=== PATIENT | female | born 1940 | race Caucasian/White ===

== ENCOUNTER 2018-01-03 18:56 | Inpatient (IN) | payer OTHER ==
[~2018-01-03] VITALS: Ht 162.6 cm; Wt 67.1 kg
[~2018-01-03 18:56] MED LIST: BP; CITALOPRAM; CITALOPRAM HBR40 MG PO; FENOFIBRATE145 MG PO; HYDRALAZINE HCL25 MG PO; HYDROCODON-ACE1 EA12 PO; LOSARTAN POTAS100 MG PO; MECLIZINE HCL12.5 MG PO; SIMVASTATIN; SIMVASTATIN40 MG PO; VALIUM2 MG PO
[2018-01-03] MEDS ORDERED: MORPHINE SULFATE INJ 4 MG/ML INJ IM ONE (20:30)
--- NOTE | 2018-01-03 21:11 | Diagnostic Imaging Report ---
Exam: AP view of the chest and right rib series Indication: Patient fell today and right side of ribs/chest on chair Comparison: PA and lateral view of the chest January 20, 2009 Findings: Mildly displaced right posterior lateral eighth and ninth rib fractures. The heart is within normal size limits. Eventration of the right hemidiaphragm. No pneumothorax or pleural effusion. Mild subsegmental linear atelectasis. Impression: Mildly displaced acute right posterior lateral eighth and ninth rib fractures. No pneumothorax or pleural effusion. Signed by: Dr. Yareli Beckman M.D. on 01/03/2018 9:07 PM
[2018-01-03] MEDS ORDERED: SODIUM CHLORIDE 0.9% 1000ML 1,000 ML IV SCH (21:42)
[2018-01-03] MEDS ORDERED: ONDANSETRON HCL INJ 2 MG/ML VIAL IV PRN (21:45)
[2018-01-03] MEDS ORDERED: FENOFIBRATE134 MG PO (22:08)
[2018-01-03] MEDS ORDERED: HYDRALAZINE HCL50 MG PO (22:08)
[2018-01-03] MEDS ORDERED: TIMOLOL MALEATE10 ML OS (22:15)
[2018-01-03] MEDS ORDERED: LUMIGAN2.5 M1 OS (22:15)
[2018-01-04] VITALS (9 sets, daily range): BP systolic 107–142; BP diastolic 58–67
[2018-01-04] MEDS: MORPHINE SULFATE 2 MG/ML SYR IV PRN ×3 (00:30→08:44)
[2018-01-04 05:01] LABS: BASOPHILS % 0.3 % (0.0-1.0); EOSINOPHILS # (AUTO) 0.1 (0.0-0.4); EOSINOPHILS % 0.5 % (0.0-6.0); HEMATOCRIT 30.1 % (34.2-44.1); HEMOGLOBIN 9.7 g/dL (12.0-16.0); LYMPHOCYTES # (AUTO) 1.6 (1.0-3.2); LYMPHOCYTES % 17.9 % (18.0-39.1); MEAN CORPUSCULAR HGB CONC 32.2 g/dL (31-35); MEAN CORPUSCULAR VOLUME 90.1 fL (81-99); MONOCYTES # (AUTO) 0.9 (0.2-0.8); MONOCYTES % 9.7 % (4.4-11.3); NEUTROPHILS # (AUTO) 6.5 (2.1-6.9); NEUTROPHILS % 71.3 % (38.7-80.0); PLATELET COUNT 232 x10e3/uL (140-360); RED BLOOD COUNT 3.34 x10e6/uL (3.6-5.1); RED CELL DISTRIBUTION WIDTH 13.4 % (11.7-14.4)
[2018-01-04 05:25] LABS: ANION GAP 13.9 mmol/L (8-16); CALCIUM 8.6 mg/dL (8.4-10.2); CREATININE, SERUM 0.93 mg/dL (0.57-1.11); POTASSIUM 3.9 mmol/L (3.5-5.1)
--- NOTE | 2018-01-04 07:22 | Diagnostic Imaging Report ---
EXAM: XR CHEST 1 VIEW DATE: 01/04/2018 7:00 AM INDICATION: Rib fracture COMPARISON: 01/03/2018, no report available FINDINGS: Lines and Tubes: None Heart and Mediastinum: Prominence of the mediastinum likely due to moderate low lung volumes. Lungs and Pleura: Basilar opacities statistically atelectasis given low lung lungs. No distinct pneumothorax. Bones and Soft Tissues: Known right ninth rib fracture not visualized current study. IMPRESSION: 1. Expiratory exam as above. Rib fracture recently seen obscured. Signed by: Dr. Dawson Amaro MD on 01/04/2018 7:19 AM
[2018-01-04] MEDS ORDERED: OMEPRAZOLE 20 MG CAP PO SCH (09:15)
[2018-01-04] MEDS ORDERED: CELECOXIB 100 MG CAP PO SCH (09:15)
--- NOTE | 2018-01-04 09:47 | History and Physical ---
PCP: Dr. David Story CHIEF COMPLAINT: Status post fall with fracture. SUMMARY: Patient is a 77-year-old female who lives with her friends. Apparently, had an accident with a fall and subsequently chest pain. The patient has rib fractures. The she has fractures along the mildly displaced right posterolateral 8th and 9th ribs. No pneumothorax or pleural effusion. The patient has pain, but no other significant symptoms. PAST MEDICAL HISTORY: Hypertension, dyslipidemia, poor vision due to cataract. PAST SURGICAL HISTORY: Appendectomy and hysterectomy. SOCIAL HISTORY: The patient lives with her friend. She does not smoke or use alcohol. No recreational drugs. ALLERGIES: NO KNOWN ALLERGIES. HOME MEDICATIONS: Multiple eye drops, Celexa, fenofibrate, hydralazine, losartan, simvastatin. PHYSICAL EXAMINATION VITAL SIGNS: Temperature is 98, blood pressure 107/59, pulse rate 60, respirations 18. GENERAL: The patient is not in acute distress. She is awake. HEENT: Normal, atraumatic and anicteric. NECK: Supple grossly. PULMONARY: Diminished breath sounds without any wheezing or rales. CARDIOVASCULAR: S1 and S2. Regular rate and rhythm. ABDOMEN: Soft and unremarkable. EXTREMITIES: No cyanosis or edema. NEUROLOGIC: No focal deficit. LABORATORY: Otherwise unremarkable. Chest x-ray with mildly displaced right 8th and 9th rib fractures. IMPRESSION 1. Eighth and 9th rib fractures on the right side associated with intractable pain. 2. Atelectasis. PLAN: Pain control. Physical therapy. Anti-inflammatory. Resume home medications. Incentive spirometry is important on this patient. Will monitor the patient closely. Observation. She should be able to go home within 24-48 hours. Job#: [id number] SD
[2018-01-04] MEDS: PANTOPRAZOLE SOD 40 MG TABEC PO SCH (11:36)
[2018-01-04] MEDS: CITALOPRAM HYDROBROMIDE 20 MG TAB PO SCH (11:36)
[2018-01-04] MEDS: TIMOLOL MALEATE(OPTHALMIC) 1 EA BTL OS SCH (12:10)
[2018-01-04] MEDS: CELECOXIB 200 MG CAP PO SCH ×2 (14:02→17:05)
[2018-01-04] MEDS: KETOROLAC TROMETHAMINE 30 MG/ML VIAL IV PRN (14:53)
[2018-01-04] MEDS: BIMATOPROST(OPTH) 2.5 ML BOTTLE OP SCH (21:23)
[2018-01-04] MEDS: SIMVASTATIN 40 MG TAB PO SCH (21:24)
[2018-01-05] VITALS (8 sets, daily range): BP systolic 129–161; BP diastolic 64–72
[2018-01-05] MEDS: HYDROCODONE/APAP 7.5MG-325MG 1 EA TAB PO PRN ×2 (05:36→19:28)
[2018-01-05] MEDS: PANTOPRAZOLE SOD 40 MG TABEC PO SCH (07:52)
[2018-01-05] MEDS: CELECOXIB 200 MG CAP PO SCH ×2 (07:52→17:17)
[2018-01-05] MEDS: TIMOLOL MALEATE(OPTHALMIC) 1 EA BTL OS SCH (07:54)
[2018-01-05] MEDS: CITALOPRAM HYDROBROMIDE 20 MG TAB PO SCH (08:56)
[2018-01-05] MEDS: (Fenofibrate,Micronized (Fenofibrate) 134 MG) PO SCH (09:00)
[2018-01-05] MEDS ORDERED: NON-FORMULARY MEDICATION (Citalopram Hydrobromide (Citalopram Hbr) 40 MG) PO SCH (09:00)
[2018-01-05] MEDS ORDERED: METHYLPREDNISOLONE SOD SUCC 40 MG/ML VIAL IV ONE (10:30)
--- NOTE | 2018-01-05 10:33 | Diagnostic Imaging Report ---
EXAM: CT Chest WITHOUT contrast INDICATION: Fall/fracture COMPARISON: 01/04/2018 and 01/03/2018 radiographs TECHNIQUE: The Chest was scanned utilizing a multidetector helical scanner without the use of IV contrast. Coronal and sagittal reformations were obtained. Reformatted axial MIP images were obtained and reviewed. IV CONTRAST: None COMPLICATIONS: None RADIATION DOSE: Total DLP: 503 mGy*cm Estimated effective dose: (DLP x 0.015 x size factor) mSv CTDIvol has been reviewed. It is below the limits set by the Radiation Protocol Committee (RPC). Appropriate CT dose reduction techniques were utilized. FINDINGS: Lines and Tubes: None. Lower Neck: Visualized portions thyroid unremarkable. Heart and Great Vessels: The aorta and main pulmonary artery measure 32 and 28 mm. respectively. No pericardial effusion. Moderate coronary artery vascular calcifications. Decreased attenuation blood pool suggesting anemia. Lymph Nodes: Calcified mediastinal and hilar lymph nodes present. The hilar regions are sub-optimally evaluated given lack of IV contrast. Lungs: Trace bilateral pleural effusions with bibasilar areas of consolidation, asymmetric to the right, incompletely evaluated given lack of IV contrast. Moderate apical predominant centrilobular emphysematous changes. There is mild biapical scarring. No pneumothorax is identified. The trachea and central bronchi are unremarkable. Calcified granulomata present. Upper abdomen: Calcified gallstones present. Innumerable hypodensities in the liver are incompletely evaluated without IV contrast. Areas of presumed calcification present centrally in the liver. Additionally innumerable hypodensities in the kidneys are incompletely evaluated. Splenic granulomata present. Bones and Soft Tissues: Mild to moderate degenerative changes spine. Posterior right eighth, ninth, 10th, 11th, and 12th rib fractures present with no displacement. IMPRESSION: 1. Nondisplaced posterior right rib fractures. 2. Trace effusions with asymmetric to the right bibasilar consolidation, incompletely evaluated without IV contrast. Findings could represent atelectasis or pneumonia. 3. Moderate emphysematous changes. 4. Evidence prior granulomatous disease. 5. Incompletely evaluated renal and hepatic cystic lesions, possibly representing autosomal dominant polycystic disease. Correlation with prior imaging and/or pre and postcontrast CT/MRI recommended. 6. Cholelithiasis. Signed by: Dr. Dawson Amaro MD on 01/05/2018 10:30 AM
[2018-01-05] MEDS: KETOROLAC TROMETHAMINE 30 MG/ML VIAL IV PRN ×2 (10:40→17:17)
[2018-01-05 10:51] LABS: BASOPHILS % 0.3 % (0.0-1.0); EOSINOPHILS # (AUTO) 0.3 (0.0-0.4); EOSINOPHILS % 4.2 % (0.0-6.0); HEMATOCRIT 31.5 % (34.2-44.1); LYMPHOCYTES # (AUTO) 1.2 (1.0-3.2); LYMPHOCYTES % 16.8 % (18.0-39.1); MEAN CORPUSCULAR HGB CONC 31.7 g/dL (31-35); MEAN CORPUSCULAR VOLUME 91.3 fL (81-99); MONOCYTES # (AUTO) 0.6 (0.2-0.8); MONOCYTES % 7.9 % (4.4-11.3); NEUTROPHILS # (AUTO) 4.9 (2.1-6.9); NEUTROPHILS % 70.5 % (38.7-80.0); PLATELET COUNT 192 x10e3/uL (140-360); RED BLOOD COUNT 3.45 x10e6/uL (3.6-5.1); RED CELL DISTRIBUTION WIDTH 13.4 % (11.7-14.4)
[2018-01-05 11:06] LABS: ANION GAP 11.5 mmol/L (8-16); CALCIUM 8.6 mg/dL (8.4-10.2); CREATININE, SERUM 1.05 mg/dL (0.57-1.11); POTASSIUM 4.5 mmol/L (3.5-5.1)
[2018-01-05 11:27] LABS: THYROID STIMULATING HORMONE 0.799 uIU/mL (0.350-4.940)
[2018-01-05 11:51] LABS: FOLATE 13.1 ng/mL (7.0-15.4)
[2018-01-05] MEDS ORDERED: SODIUM CHLORIDE 0.9% 250ML 250 ML ONE (17:17)
[2018-01-05] MEDS: PIPERACILLIN/TAZO 2.25 GM 50 ML IV SCH (17:18)
[2018-01-05] MEDS: BIMATOPROST(OPTH) 2.5 ML BOTTLE OP SCH (20:21)
[2018-01-05] MEDS: SIMVASTATIN 40 MG TAB PO SCH (20:21)
[2018-01-06] VITALS (7 sets, daily range): BP systolic 123–158; BP diastolic 58–70
[2018-01-06] MEDS: PIPERACILLIN/TAZO 2.25 GM 50 ML IV SCH ×4 (00:30→17:25)
[2018-01-06] MEDS: HYDROCODONE/APAP 7.5MG-325MG 1 EA TAB PO PRN ×4 (01:51→21:55)
[2018-01-06] MEDS: PANTOPRAZOLE SOD 40 MG TABEC PO SCH (08:27)
[2018-01-06] MEDS: CELECOXIB 200 MG CAP PO SCH ×2 (08:27→17:25)
[2018-01-06] MEDS: TIMOLOL MALEATE(OPTHALMIC) 1 EA BTL OS SCH (08:28)
[2018-01-06] MEDS: CITALOPRAM HYDROBROMIDE 20 MG TAB PO SCH (08:28)
[2018-01-06] MEDS: (Fenofibrate,Micronized (Fenofibrate) 134 MG) PO SCH (08:28)
[2018-01-06] MEDS: BIMATOPROST(OPTH) 2.5 ML BOTTLE OP SCH (21:04)
[2018-01-06] MEDS: SIMVASTATIN 40 MG TAB PO SCH (21:04)
[2018-01-07] VITALS: BP 120/56
[2018-01-07] MEDS: PIPERACILLIN/TAZO 2.25 GM 50 ML IV SCH ×2 (00:30→05:42)
[2018-01-07 04:00] VITALS: BP 165/74
[2018-01-07] MEDS: HYDROCODONE/APAP 7.5MG-325MG 1 EA TAB PO PRN (05:45)
[2018-01-07 06:01] LABS: BASOPHILS # (AUTO) 0.1 (0.0-0.1); BASOPHILS % 0.7 % (0.0-1.0); EOSINOPHILS # (AUTO) 0.4 (0.0-0.4); EOSINOPHILS % 5.3 % (0.0-6.0); HEMATOCRIT 30.2 % (34.2-44.1); HEMOGLOBIN 9.9 g/dL (12.0-16.0); LYMPHOCYTES # (AUTO) 1.7 (1.0-3.2); LYMPHOCYTES % 23.5 % (18.0-39.1); MEAN CORPUSCULAR HEMOGLOBIN 29.1 pg (28-32); MEAN CORPUSCULAR HGB CONC 32.8 g/dL (31-35); MEAN CORPUSCULAR VOLUME 88.8 fL (81-99); MONOCYTES # (AUTO) 0.7 (0.2-0.8); MONOCYTES % 8.9 % (4.4-11.3); NEUTROPHILS # (AUTO) 4.6 (2.1-6.9); NEUTROPHILS % 61.3 % (38.7-80.0); PLATELET COUNT 201 x10e3/uL (140-360); RED CELL DISTRIBUTION WIDTH 13.3 % (11.7-14.4)
[2018-01-07 06:23] LABS: ANION GAP 13.5 mmol/L (8-16); CALCIUM 8.1 mg/dL (8.4-10.2); CREATININE, SERUM 1.36 mg/dL (0.57-1.11); POTASSIUM 4.5 mmol/L (3.5-5.1)
[2018-01-07 07:20] VITALS: BP 155/71
[2018-01-07] MEDS: TIMOLOL MALEATE(OPTHALMIC) 1 EA BTL OS SCH (08:24)
[2018-01-07] MEDS: CELECOXIB 200 MG CAP PO SCH (08:24)
[2018-01-07] MEDS: CITALOPRAM HYDROBROMIDE 20 MG TAB PO SCH (08:24)
[2018-01-07] MEDS: PANTOPRAZOLE SOD 40 MG TABEC PO SCH (08:24)
[2018-01-07] MEDS: (Fenofibrate,Micronized (Fenofibrate) 134 MG) PO SCH (08:25)
[2018-01-07 09:16] VITALS: BP 155/71
[2018-01-07] MEDS ORDERED: ZOFRAN ODT4 MG SL (09:18)
[2018-01-07] MEDS ORDERED: TYLENOL WITH C1 EACH PO (09:18)
[2018-01-07] MEDS ORDERED: PRILOSEC OTC20 MG PO (09:18)
[2018-01-07] MEDS ORDERED: AUGMENTIN 875-1 EACH PO (09:19)
[2018-01-07] MEDS ORDERED: MOBIC7.5 MG PO (09:19)
--- NOTE | 2018-01-07 16:24 | Discharge Summary ---
PRIMARY CARE PHYSICIAN: Dr. David Story. FINAL DIAGNOSES 1. Right 8th and 9th rib fractures status post accidental fall. 2. Bibasilar atelectasis, development of pneumonia. 3. Shortness of breath, improved. SUMMARY: This is a 77-year-old female has baseline stable COPD. Apparently had an accidental fall and suffered right 8th and 9th rib fractures. The pain was quite severe that she was not able to take deep breaths. The patient developed atelectasis in both bibasilar lung area and then subsequently developed basilar infiltrate. The patient was given Zosyn. She is doing much better. The patient is stable at this time. Her breathing is much improved as well. Patient is stable and discharged home today. She will follow up with Dr. David Story within a week. The patient will continue with her home medications. Job#: [id number]
== END 2018-01-07 09:40 | disposition home or self-care (01) | DRG 183 ==
LOC: ER 18:56 → ERHOLD 21:42 → IMCU 01-04 00:04 → OBSVTOIN 01-05 15:06 → MED/SURG 01-05 15:48
PROVIDERS: ADMIT Internal Medicine; ATTEND Internal Medicine
DX: S22.41XA Multiple fractures of ribs, right side, initial encounter for closed fracture (principal); J18.9 Pneumonia, unspecified organism; W01.198A Fall on same level from slipping, tripping and stumbling with subsequent striking against other object, initial encounter; Y93.01 Activity, walking, marching and hiking; Y92.009 Unspecified place in unspecified non-institutional (private) residence as the place of occurrence of the external cause; I10 Essential (primary) hypertension; D64.9 Anemia, unspecified; H54.3 Unqualified visual loss, both eyes; H26.9 Unspecified cataract; R07.89 Other chest pain; G89.11 Acute pain due to trauma
CPT/HCPCS: 36415; 71045; 71101; 71250; 80048; 82607; 82746; 83540; 84443; 84466; 85025; 99283; G0378; J1885; J2270; J2543; J2920; J7030; J7050

== ENCOUNTER 2021-10-14 09:24 | Emergency (ER) | payer MEDICARE, OTHER ==
[~2021-10-14] VITALS: Ht 162.6 cm; Wt 67.1 kg
[~2021-10-14 09:24] MED LIST changes: +AUGMENTIN 875-1 EACH PO; +FENOFIBRATE134 MG PO; +HYDRALAZINE HCL50 MG PO; +LUMIGAN2.5 M1 OS; +MOBIC7.5 MG PO; +PRILOSEC OTC20 MG PO; +TIMOLOL MALEATE10 ML OS; +TYLENOL WITH C1 EACH PO; +ZOFRAN ODT4 MG SL
[2021-10-14] MEDS ORDERED: ACETAMINOPHEN 325 MG TAB PO PRN (10:15)
== END 2021-10-14 18:16 | disposition home or self-care (01) ==
LOC: ER 09:28
DX: S40.011A Contusion of right shoulder, initial encounter (principal); S00.83XA Contusion of other part of head, initial encounter; W10.9XXA Fall (on) (from) unspecified stairs and steps, initial encounter; I10 Essential (primary) hypertension; F32.A Depression, unspecified; Z79.899 Other long term (current) drug therapy; Z98.61 Coronary angioplasty status; Z91.81 History of falling
CPT/HCPCS: 70450; 72125; 99282

== ENCOUNTER 2022-05-16 14:02 | Emergency (ER) | payer MEDICARE, OTHER ==
[~2022-05-16] VITALS: Ht 162.6 cm; Wt 67.1 kg
[2022-05-16] MEDS ORDERED: CELEBREX100 MG PO (18:48)
[2022-05-16] MEDS ORDERED: METHOCARBAMOL750 MG PO (18:48)
== END 2022-05-16 19:20 | disposition home or self-care (01) ==
LOC: ER 14:22
DX: M43.16 Spondylolisthesis, lumbar region (principal); M25.552 Pain in left hip; M25.551 Pain in right hip; W01.0XXA Fall on same level from slipping, tripping and stumbling without subsequent striking against object, initial encounter; Y93.01 Activity, walking, marching and hiking; Y92.89 Other specified places as the place of occurrence of the external cause; I10 Essential (primary) hypertension; F32.A Depression, unspecified
CPT/HCPCS: 72131; 72192; 99283